=== PATIENT | female | born 1985 | race American Indian/Alaskan Native ===

== ENCOUNTER 2017-01-27 01:27 | Inpatient (IN) | payer MEDICAID, OTHER ==
[2017-01-27] MEDS ORDERED: Misoprostol 400 MCG (4 X 100 MCG TAB) RECTAL PRN (10:15)
[2017-01-27] MEDS ORDERED: Sodium Chloride 0.9% 10 ML Syringe FLUSH PRN ×2 (10:15→19:04)
[2017-01-27] MEDS ORDERED: Lactated Ringers 1,000 ML IV SCH (10:15)
[2017-01-27] MEDS ORDERED: Lactated Ringers 500 ML IV ONE (10:15)
[2017-01-27] MEDS ORDERED: Ondansetron 4 MG/2 ML SDV IV PRN (10:15)
[2017-01-27] MEDS ORDERED: Methylergonovine 0.2 MG/1 ML Amp IM PRN (10:15)
[2017-01-27] MEDS ORDERED: Lidocaine 1% 30 ML SDV INJECT PRN (10:15)
[2017-01-27] MEDS ORDERED: Acetaminophen 325 MG Tab PO PRN (10:15)
[2017-01-27] MEDS ORDERED: Carboprost Tromethamine 250 MCG/1 ML Amp IM PRN (10:15)
[2017-01-27] MEDS ORDERED: Oxytocin/Normal Saline 30 UNIT/500 ML BAG IV SCH (12:00)
[2017-01-27] MEDS ORDERED: Simethicone 80 MG Tab.Chew PO PRN (19:04)
[2017-01-27] MEDS ORDERED: Benzocaine/Menthol 20%-0.5% Spray 56 GM Canister TOP PRN (19:04)
[2017-01-27] MEDS ORDERED: Oxytocin 10 Units/1 ML SDV IM PRN (19:04)
[2017-01-27] MEDS ORDERED: Measles, Mumps & Rubella Vaccine 0.5 ML SDV SUBCUT ONE (19:04)
[2017-01-27] MEDS ORDERED: Zolpidem 5 MG Tab PO PRN (19:04)
[2017-01-27] MEDS: Ibuprofen 800 MG Tab PO PRN (19:56)
[2017-01-27] MEDS: Acetaminophen/HYDROcodone 325-10 MG Tab PO PRN (20:34)
[2017-01-28] MEDS: Acetaminophen/HYDROcodone 325-10 MG Tab PO PRN ×3 (01:17→22:37)
[2017-01-28] MEDS: Ibuprofen 800 MG Tab PO PRN ×2 (04:28→19:32)
--- NOTE | 2017-01-28 08:44 | HP ---
PATIENT IDENTIFICATION: Jenny Wiley is 31-year-old, -0-1-4, intrauterine , 39 weeks, confirmed with 24 and 7th week ultrasound, who presents with contractions. HISTORY OF PRESENT ILLNESS: The patient states contractions started the night prior to admission. She presented to the hospital around 2 a.m., had contractions every 6-9 minutes, felt in the lower abdomen, radiating to the back and describes some pubic bone pain associated with this as well. She was subsequently evaluated and followed closely. She states her contractions are worse when she walks, better when she lies down. She was initially noted to be 3 cm and then changed to 4 cm after serial examinations. She has a history of fast labors and deliveries, usually within 2 hours of artificial rupture of membranes, and lives far from the hospital. She is GBS negative to put in context. Records were called for, reviewed as below, and supplemented by the patient's history. ALLERGIES: Erythromycin. MEDICATIONS: vitamins. PAST MEDICAL/PAST SURGICAL HISTORY: Remarkable for chronic bronchitis and mood disorder requiring Zoloft and Lexapro in the past. FAMILY HISTORY: Maternal grandfather with stomach cancer. Seizures in maternal grandfather as well. Negative family history of defects, anesthesia problems, bleeding problems, or clotting disorders. SOCIAL HISTORY: Jenny lives in [place] with her 2 daughters. No pets in the home. She does smoke. No alcohol or drug use. OBSTETRICAL HISTORY: 1. On 02/21/2015, Chava Wiley born via spontaneous vaginal delivery at 39 and 2/7th weeks, weighing 3480 g, within 2 hours of artificial rupture of membranes. 2. On 01/25/2011, 39 week female delivered via spontaneous vaginal delivery weighing 2948 g. 3. 07/11/2007, female delivered via spontaneous vaginal delivery weighing 2892g. 4. 05/2006 spontaneous AB. 5. 06/02/2005 spontaneous vaginal delivery of a female weighing 2892 g. ANTEPARTUM LABS: ABO blood type O positive, negative antibody. Rubella equivocal. RPR nonreactive. Negative hepatitis B surface antigen. Negative hep C, HIV, GC, and Chlamydia. Wet prep within normal limits. One-hour GTT was 126. Last hemoglobin was 12.6 on 11/25/2016, with platelets being 258,000 in the clinic. GBS was negative on 01/13/2017. REVIEW OF SYSTEMS: Otherwise reviewed and felt to be noncontributory. OBJECTIVE: Vital Signs: Upon initial evaluation, blood pressure 117/71, heart rate 81, temperature 97.8, respiratory rate between 12 and 16. Appearance: Female, appears her stated age, acting appropriate for age, nontoxic appearance. HEENT: Head atraumatic. EOMs intact. PERRLA. No scleral icterus. No obvious otorhinorrhea. Mucous membranes moist. Neck: No obvious tenderness. Lungs: Clear auscultation bilaterally. No increased work of breathing. Heart: S1 and S2. Regular rate and rhythm. Abdomen: Gravid. Samuel's intermediate. Nontender and nondistended. Bowel sounds positive. No other organomegaly, pulsatile masses, or obvious hernias. No rebound, rigidity or guarding. : Normal external female genitalia. Normal position and presentation of urethra. Vaginal exam reveals her to be 4 cm, 60 to 75% effaced, -1 station, vertex suspected. Artificial rupture of membranes done after discussion with patient yielding copious amounts of clear fluid. Extremities: Trace pedal edema. No calf pain. Deep tendon reflexes 1-2/4 bilaterally and symmetric in lower extremities. Psych: Mood and affect are congruent. Judgment and insight are intact. Skin: No cyanosis, clubbing, or jaundice. LABORATORY DATA: Reveal white cell count 13.5, hemoglobin 11.9, and platelets 213,000. heart tones in the 135 range, felt to be reassuring. Tocometer reveals occasional contraction currently. ASSESSMENT: 1. Intrauterine at 39 weeks confirmed with 24-and /7th week ultrasound. 2. Contractions with cervical change. 3. History of fast labors and deliveries. 4. Living far from the hospital in the past. 5. Rubella equivocal. 6. Group B Streptococcus negative. 7. 6, para 4-0-1-4. PLAN: Patient will be admitted. Artificial rupture of membranes done as above. We will continue to follow clinically and closely. I did discuss potential for using Pitocin augmentation as well. The patient understands and agrees with the above treatment plan. [facility] /[id number]
[2017-01-28] MEDS: Docusate Sodium 100 MG Cap PO PRN ×2 (08:57→22:38)
[2017-01-28] MEDS: Prenatal Multivitamin with Calcium/Folic Acid/Iron Tab PO SCH (08:57)
--- NOTE | 2017-01-28 09:25 | PN ---
DATE: 01/27/2017 SUBJECTIVE: The patient's feeling contractions getting stronger. OBJECTIVE: heart tones in the 120s to 130s range, felt to be reassuring and reactive. Tocometer reveals contractions every 2 to 3 minutes. Pitocin is currently at 10 milliunits per minute. Vaginal exam reveals to be 6-7 cm, 80% effaced, 0 station, vertex suspected. ASSESSMENT AND PLAN: Intrauterine at 39 weeks with active labor upon admission, history of fast labors and deliveries, with history of living far from the hospital. Rubella equivocal. Group B Streptococcus negative. 6, para 4-0-1-4. PLAN: We will continue with Pitocin augmentation. Follow clinically and closely. Consider positional changes as well. Plans were discussed with the patient. She understands and agrees. [facility] /[id number]
--- NOTE | 2017-01-28 09:31 | PN ---
DATE: 01/28/2017 day #1. SUBJECTIVE: The patient is tolerating POs, ambulating, urinating, passing flatus. OBJECTIVE: Vital Signs: Last set of vitals updated and listed in the chart. Temperature 98.6, heart rate 82, blood pressure 137/76, respiratory rate 16. Lungs: Clear to auscultation bilaterally. Heart: S1 and S2. Regular rate and rhythm. Abdomen: Firm uterus -1 below umbilicus. Trace peripheral edema. No calf pain. LABORATORY DATA: White cell count 14.3, hemoglobin 11.4, and platelets 200,000 today. ASSESSMENT: 1. day #1, status post spontaneous vaginal delivery. 2. hypertension-resolving. PLAN: We will continue to follow clinically and closely. Possible discharge tomorrow. Did discuss with Dr. Brittany guzmán in my absence over the weekend and followup appointments for baby to be made on 01/31/2017. The patient understands and agrees with the above treatment plan. [facility] /[id number]
--- NOTE | 2017-01-28 09:39 | DEL ---
DATE: 01/27/2017 PREOPERATIVE DIAGNOSES: 1. Intrauterine at 39 weeks, confirmed with 24-1/7th-week ultrasound. 2. Contractions with cervical change-labor upon admission. 3. History of fast labors and deliveries. 4. History of living far from the hospital. 5. Rubella equivocal. 6. Group B Streptococcus negative. 7. 6, para 4-0-1-4. POSTOPERATIVE DIAGNOSES: 1. Intrauterine at 39 weeks, confirmed with 24-1/7th-week ultrasound- delivered. 2. Contractions with cervical change-labor upon admission. 3. History of fast labors and deliveries. 4. History of living far from the hospital. 5. Rubella equivocal. 6. Group B Streptococcus negative. 7. 6, para 4-0-1-4. 8. Nuchal cord x1, reduced bluntly with delivery. 9. SABINE presentation with right hand by left cheek. PROCEDURES PERFORMED: Artificial rupture of membranes, Pitocin, and then subsequent spontaneous vaginal delivery. HANDMADE TILE ARTIST: None. ANESTHESIA/ANALGESIA: None. ESTIMATED BLOOD LOSS: 300 mL. FINDINGS: Male, scores and weight pending. SUMMARY OF EVENTS: The patient is a 31-year-old, G6, P4-0-1-4, intrauterine at 39 weeks confirmed with 24-1/7th-week ultrasound, who was admitted with contractions with cervical change-labor with history of fast labors and deliveries. She underwent the above procedures, then went on to be found near the second stage of labor. Serial evaluations were done. She had the urge to push and was found to be in the 2nd stage of labor. I donned sterile gown and gloves and with the patient pushing, vertex was delivered in an SABINE presentation, followed by rest of the , with nuchal cord x1 reduced bluntly with delivery. Mouth and nares were suctioned. was resuscitated on mother's abdomen. Cord was doubly clamped and cut. Then, approximately 10 mL of cord blood was obtained for labs. Placenta was then delivered with gentle cord traction and fundal massage within 5 to 10 minutes. Perineum, vagina, and perirectal areas were then examined without any tears or lacerations. Mother and infant are currently stable at the time of dictation. [facility] /[id number]
[2017-01-29] MEDS: Acetaminophen/HYDROcodone 325-10 MG Tab PO PRN ×2 (02:16→06:38)
[2017-01-29] MEDS: Ibuprofen 800 MG Tab PO PRN ×2 (06:40→15:07)
[2017-01-29] MEDS: Docusate Sodium 100 MG Cap PO PRN (10:28)
[2017-01-29] MEDS: Prenatal Multivitamin with Calcium/Folic Acid/Iron Tab PO SCH (10:28)
[2017-01-29 14:32] VITALS: BP 104/69
--- NOTE | 2017-01-29 21:35 | DISCH ---
HISTORY: This patient was rounded on by myself today while Dr. Mendoza is off duty. Dr. Mendoza has conveyed and relayed the information to me about her hospital course. She did have a spontaneous vaginal delivery on 01/27/2017 with no complications. She is a 6, para 5, AB1 patient. She and her baby continued to do well. She is scheduled for discharge today. She does have the normal return of bowel and bladder function and is tolerating diet well. She has no complaints whatsoever. Please see the electronic health record as it pertains to Dr. Mendoza's dictated delivery note and her admission history and physical. At the present time, her examination is normal, revealing negative extremity exam and negative Homans sign bilaterally. Abdomen is soft, and nontender. The fundus is firm. There was negative CVA tenderness. Her vital signs continued to remain stable. Her discharge hemoglobin is 11.4. The patient will utilize regular diet at home. Her condition on discharge is good. As far as her followup appointment she will see Dr. Mendoza in the clinic on Tuesday. The patient states that she still thinks she would like to breast-feed, but that has not been well established yet. Other instructions that I have given her today is to please call us at once if any fever, excess pain, excess bleeding, or any unusual pain in her extremities, lungs, chest, or breast, or pelvic or vaginal area etc. She assures me that she will keep in close contact with us. I did explain to her the importance of gradual increased ambulation everyday. She will avoid intercourse for approximately 6 weeks. She will avoid heavy lifting or strenuous physical activity. Showering and bathing in a bathtub is permitted FINAL DIAGNOSIS: Term , delivered by Dr. Mendoza on 01/27/2017. DISCHARGE MEDICATIONS: Consist of; 1. [id number] use of ibuprofen or Tylenol. 2. She also will use Colace. 3. She will continue to take her vitamin with iron. Importance of healthy well-balanced nutritional measures and adequate hydration was also emphasized and discussed with her. [facility] /[id number]
== END 2017-01-29 15:30 | disposition home or self-care (01) | DRG 774 ==
LOC: DL.OBCHECK 01:27 → DL.OB 02:43 → OBSVTOIN 18:52 → DL.MS 01-29 05:56 → DL.OB 01-29 06:00
PROVIDERS: ADMIT Family Medicine; ATTEND Family Medicine
PROC: 10E0XZZ Delivery of Products of Conception, External Approach (ICD-10-PCS; principal; 2017-01-27)
PROC: 10907ZC Drainage of Amniotic Fluid, Therapeutic from Products of Conception, Via Natural or Artificial Opening (ICD-10-PCS; 2017-01-27)
DX: O69.81X0 Labor and delivery complicated by cord around neck, without compression, not applicable or unspecified (principal); O16.5 Unspecified maternal hypertension, complicating the puerperium; Z37.0 Single live birth; Z3A.39 39 weeks gestation of pregnancy; Z75.3 Unavailability and inaccessibility of health-care facilities
CPT/HCPCS: 36415; 85027; 90707; A9270-GY; J2590; J7120

== ENCOUNTER 2020-12-29 02:25 | Inpatient (IN) | payer MEDICAID, OTHER ==
[2020-12-29] MEDS ORDERED: Tranexamic Acid 1,000 MG in Sodium Chloride 0.9% 100 ML IV PRN ×2 (03:24→07:37)
[2020-12-29] MEDS ORDERED: Lactated Ringers 1,000 ML IV ONE ×2 (03:24→07:00)
[2020-12-29] MEDS ORDERED: Misoprostol 400 MCG (4 X 100 MCG TAB) RECTAL PRN ×2 (03:24→07:37)
[2020-12-29] MEDS ORDERED: Methylergonovine 0.2 MG/1 ML Amp IM PRN ×2 (03:24→07:37)
[2020-12-29] MEDS ORDERED: Carboprost Tromethamine 250 MCG/1 ML Amp IM PRN ×2 (03:24→07:37)
[2020-12-29] MEDS ORDERED: Lidocaine 1% 30 ML SDV INJECT PRN (03:24)
[2020-12-29] MEDS ORDERED: Acetaminophen 325 MG Tab PO PRN ×2 (03:24→07:37)
[2020-12-29] MEDS ORDERED: Ondansetron 4 MG/2 ML SDV IVPUSH PRN ×3 (03:24→07:40)
[2020-12-29] MEDS ORDERED: Sodium Chloride 0.9% 10 ML Syringe FLUSH PRN (03:24)
[2020-12-29] MEDS ORDERED: Oxytocin/Normal Saline 30 UNIT/500 ML BAG IV SCH (03:30)
--- NOTE | 2020-12-29 03:30 | PCM.LDHP ---
<LoweryLonniemaddie - Last Filed: 12/29/20 03:36> L&D History of Present Illness - General Date of Service: 12/29/20 Admit Problem/Dx: Labor 12/29/20 03:27 Patient Status [ADT] Routine Admission Diagnosis/Problem Admission Diagnosis/Problem Normal labor 12/29/20 03:30 Source of Information: Patient - History of Present Illness Introduction:: Jenny Wiley is a 35 year old female at 39w6d gestation who presents today with painful regular contractions. She states they have been sporadic over the last couple of days but have become more painful and closer together since approximately 1am. She states the contractions are occurring around every 5 minutes. She rates the pain 7/10. She has been feeling adequate movement. She denies any bleeding or leakage of fluid. care is limited. She was seen for a 29 week visit and found to have Trichomoniasis which was treated. Location, : Reports: Lower back Quality: Reports: Ache Severity: Moderate Improves with: Reports: None Worsens with: Reports: None Associated Symptoms: Denies: vaginal bleeding, vaginal fluid - Related Data Allergies/Adverse Reactions: Allergies Allergy/AdvReac Type Severity Reaction Status Date / Time erythromycin base Allergy Unknown Rash Verified 12/29/20 02:58 [Erythromycin Base] Home Medications: Home Meds Pnv No.95/Ferrous Fum/Folic AC [ Caplet] 1 tab PO DAILY 12/29/20 [History] Acetaminophen [Tylenol] 650 mg PO Q6H PRN tablet 01/01/21 [Rx] Acetaminophen/oxyCODONE [Percocet 325-5 MG] 1 - 2 tab PO Q6HR PRN #15 tablet 01/01/21 [Rx] Docusate Sodium [Colace] 100 mg PO Q12H PRN 60 Days cap 01/01/21 [Rx] Ferrous Sulfate 325 mg PO BID #84 tablet 01/01/21 [Rx] Ibuprofen [Motrin] 800 mg PO Q8H PRN tablet 01/01/21 [Rx] Vit with Ca/FA/Iron [ Plus Iron] 1 each PO DAILY tablet 01/01/21 [Rx] Past Medical History - Past Health History Medical/Surgical History: Denies Medical/Surgical History HEENT History: Reports: None Cardiovascular History: Reports: None Respiratory History: Reports: None Gastrointestinal History: Reports: None Genitourinary History: Reports: None CMS EXPERT History: Reports: , Spontaneous Other OB/BYN History: had a vaginal delivery 3 months ago Musculoskeletal History: Reports: None Neurological History: Reports: None Psychiatric History: Reports: None Endocrine/Metabolic History: Reports: None Hematologic History: Reports: None Immunologic History: Reports: None Oncologic (Cancer) History: Reports: None Dermatologic History: Reports: None - Infectious Disease History Infectious Disease History: Reports: Chicken Pox - Past Surgical History Head Surgeries/Procedures: Reports: None Social & Family History - Family History Family Medical History: No Pertinent Family History - Caffeine Use Caffeine Use: Reports: None Other Caffeine Use: States drinks 1 pot of coffee a day. And occasional soft drinks H&P Review of Systems - Review of Systems: Review Of Systems: See Below General: Denies: Fever, Chills, Malaise HEENT: Reports: Headaches. Denies: Sinus Congestion, Sore Throat, Visual Changes Pulmonary: Denies: Shortness of Breath, Wheezing, Cough Cardiovascular: Denies: Chest Pain, Palpitations, Edema Gastrointestinal: Denies: Nausea, Vomiting Genitourinary: Denies: Dysuria, Urgency Skin: Denies: Bruising, Rash Psychiatric: Denies: Confusion, Depression L&D Exam - Exam Exam: See Below - Vital Signs Weight: 95.254 kg - OB Specific Contraction Intensity: Moderate Movement: Active Heart Tones: Present Heart Tones per Min: 120 Heart Rate (FHR) Variability: Moderate (6-25 bmp) Presentation: Vertex - Louis Score Louis Score Cervix Position: Midposition Louis Score Consistency: Soft Louis Score Effacement: 51-70% Louis Score Dilation: > 5 cm Louis Score Infant's Station: -1 ,0 Louis Score Total: 10 - Exam General: Alert, Oriented HEENT: Conjunctiva Clear, Mucosa Moist & [place] Neck: Supple, Trachea Midline Lungs: Clear to Auscultation, Normal Respiratory Effort Cardiovascular: Regular Rate, Regular Rhythm GI/Abdominal Exam: Normal Bowel Sounds, Soft Extremities: Normal Inspection, Pedal Edema (mild pedal edema) Skin: Warm, Dry Psychiatric: Alert, Normal Mood Problem List Initiated/Reviewed/Updated: Yes Orders Last 24hrs: Active Orders 24 hr Category Date Time Status Patient Status [ADT] Routine ADT 12/29/20 03:27 Ordered Communication Order [RC] ASDIRECTED Care 12/29/20 03:27 Ordered Heart Tones [RC] PER UNIT ROUTINE Care 12/29/20 03:27 Ordered Notify Provider Vital Signs OB [RC] ASDIRECTED Care 12/29/20 03:27 Ordered Notify Provider [RC] PRN Care 12/29/20 03:27 Ordered Pump Management, Intrathecal [RC] ASDIRECTED Care 12/29/20 03:24 Ordered Up ad Bella [RC] ASDIRECTED Care 12/29/20 03:27 Ordered Vital Signs [RC] PER UNIT ROUTINE Care 12/29/20 03:27 Ordered CBC W/O DIFF,HEMOGRAM [HEME] Routine Lab 12/29/20 03:10 Ordered CORONAVIRUS COVID-19 AUDI [MOLEC] Urgent Lab 12/29/20 03:10 Ordered DRUG SCREEN, URINE [URCHEM] Urgent Lab 12/29/20 03:22 Ordered Acetaminophen [TylenoL] Med 12/29/20 03:24 Ordered 650 mg PO Q4H PRN Carboprost Tromethamine [Hemabate DS] Med 12/29/20 03:24 Ordered 250 mcg IM ASDIRECTED PRN Lactated Ringers @ 125 MLS/HR(1000ml) Med 12/29/20 03:30 Ordered Lactated Ringers [Ringers, Lactated] 1,000 ml IV ASDIRECTED Lactated Ringers [Ringers, Lactated] 1,000 ml Med 12/29/20 03:24 Ordered IV BOLUS Lidocaine 1% [Xylocaine-MPF 1%] Med 12/29/20 03:24 Ordered 30 ml INJECT ASDIRECTED PRN Methylergonovine [Methergine] Med 12/29/20 03:24 Ordered 0.2 mg IM ASDIRECTED PRN Ondansetron [Zofran] Med 12/29/20 03:24 Ordered 4 mg IVPUSH Q4H PRN Oxytocin 30 Units in NS @ 2 MUNITS/MIN(500ml) Med 12/29/20 03:30 Ordered Oxytocin/Normal Saline [Pitocin in NS 30 UNIT/500 ML] 30 unit in 500 ml IV TITRATE Sodium Chloride 0.9% [Saline Flush] Med 12/29/20 03:24 Ordered 10 ml FLUSH ASDIRECTED PRN Tranexamic Acid [Cyklokapron] 1,000 mg Med 12/29/20 03:24 Ordered Sodium Chloride 0.9% [Normal Saline] 100 ml IV ONETIME miSOPROStoL [Cytotec] Med 12/29/20 03:24 Ordered 800 mcg RECTAL ASDIRECTED PRN Saline Lock Insert [OM.PC] Routine Oth 12/29/20 03:27 Ordered Resuscitation Status Routine Resus Stat 12/29/20 03:24 Ordered Assessment/Plan Comment:: Assessment: Jenny Wiley is a 35 year old female here in labor, with limited care. Category 1 tracing. Plan: 1.Admit patient to L&D for expectant management of active labor in term 2. Monitor with Malcom/EFM 3. Will obtain UDS as patient had one visit at 29 weeks. 4. Patient does not desire intrathecal. 5. Expect <Cass Ayers - Last Filed: 01/01/21 13:03> L&D History of Present Illness - General Admit Problem/Dx: Patient Status Order with Admit Dx/Problem 12/29/20 03:27 Patient Status [ADT] Routine 12/29/20 07:37 Patient Status [ADT] Routine Admission Diagnosis/Problem Admission Diagnosis/Problem delivery, delivered, current hospitalization L&D Exam - Vital Signs Vital Signs: Last Vital Signs Temp 37.6 C 01/01/21 08:00 Pulse 92 01/01/21 08:00 Resp 16 01/01/21 08:00 BP 128/71 01/01/21 08:00 Pulse Ox 97 01/01/21 08:00 - Patient Data Lab Results Last 24 hrs: Laboratory Results - last 24 hr 01/01/21 Range/Units 05:53 WBC 12.4 H (5.0-10.0) 10^3/uL RBC 3.31 L (4.2-5.4) 10^6/uL Hgb 9.9 L D (12.0-16.0) g/dL Hct 31.2 L (37.0-47.0) % MCV 94.3 (80-100) fL MCH 29.9 (27.0-34.0) pg MCHC 31.7 L (33.0-35.0) g/dL Plt Count 326 (150-450) 10^3/uL Result Diagrams: 01/01/21 05:53 Orders Last 24hrs: Active Orders 24 hr Category Date Time Status Ready for Discharge [RC] PER UNIT ROUTINE Care 01/01/21 07:49 Active Medication Orders Acetaminophen (Acetaminophen 325 Mg Tab) 650 mg PO Q6H PRN PRN Reason: Mild Pain (1-3) or Fever Carboprost Tromethamine (Carboprost Tromethamine 250 Mcg/1 Ml Amp) 250 mcg IM ONETIME PRN PRN Reason: Bleeding Diphenhydramine HCl (Diphenhydramine 50 Mg/Ml Sdv) 25 mg IVPUSH Q6H PRN PRN Reason: Itching Diphenhydramine HCl (Diphenhydramine 25 Mg Tab) 25 mg PO Q6H PRN PRN Reason: Itching Docusate Sodium (Docusate Sodium 100 Mg Cap) 100 mg PO Q12H PRN PRN Reason: Constipation Last Admin: 01/01/21 08:59 Dose: 100 mg Documented by: Admin: 12/31/20 22:48 Dose: 100 mg Documented by: Admin: 12/31/20 08:43 Dose: 100 mg Documented by: Admin: 12/30/20 21:24 Dose: 100 mg Documented by: Admin: 12/30/20 13:05 Dose: 100 mg Documented by: Admin: 12/29/20 19:48 Dose: 100 mg Documented by: THAIS Ephedrine Sulfate (Ephedrine 50 Mg/Ml Sdv) 5 mg IVPUSH SEECOMMENT PRN PRN Reason: Other Fentanyl Citrate (Fentanyl Citrate/Pf 1,500 Mcg/30 Ml Vegetable Loader Machine Operator Vial) 0 mcg IV ASDIRECTED SANDY; Protocol Last Admin: 12/29/20 07:50 Dose: 50 mcg Documented by: JOAQUIN Cosigned by: OVERTIM Lactated Ringer's (Ringers, Lactated) 1,000 mls @ 125 mls/hr IV ASDIRECTED SANDY Last Admin: 12/29/20 20:37 Dose: 125 mls/hr Documented by: Infusion: 12/29/20 12:24 Dose: 125 mls/hr Documented by: Admin: 12/29/20 04:24 Dose: 125 mls/hr Documented by: THAIS Oxytocin/Sodium Chloride (Pitocin In Ns 30 Unit/500 Ml) 30 unit in 500 mls @ 2 mls/hr IV TITRATE SANDY; Protocol Last Titration: 12/29/20 10:32 Dose: 0 munits/min, 0 mls/hr Documented by: Titration: 12/29/20 09:00 Dose: 50 munits/min, 50 mls/hr Documented by: Admin: 12/29/20 07:21 Dose: 125 munits/min, 125 mls/hr Documented by: JOAQUIN Lactated Ringer's (Ringers, Lactated) 1,000 mls @ 125 mls/hr IV ASDIRECTED SANDY Last Admin: 12/29/20 16:46 Dose: 125 mls/hr Documented by: Infusion: 12/29/20 16:33 Dose: 125 mls/hr Documented by: Admin: 12/29/20 08:33 Dose: 125 mls/hr Documented by: ALEX Tranexamic Acid 1,000 mg/ (Sodium Chloride) 110 mls @ 660 mls/hr IV ONETIME PRN PRN Reason: Bleeding Ibuprofen (Ibuprofen 800 Mg Tab) 800 mg PO Q8H PRN PRN Reason: Cramping Last Admin: 01/01/21 08:59 Dose: 800 mg Documented by: Admin: 12/31/20 22:48 Dose: 800 mg Documented by: Admin: 12/31/20 14:23 Dose: 800 mg Documented by: Admin: 12/31/20 06:30 Dose: 800 mg Documented by: Admin: 12/30/20 21:23 Dose: 800 mg Documented by: Admin: 12/30/20 13:05 Dose: 800 mg Documented by: USMAN Lidocaine HCl (Lidocaine 1% 30 Ml Sdv) 30 ml INJECT ASDIRECTED PRN PRN Reason: Perineal Repair Methylergonovine Maleate (Methylergonovine 0.2 Mg/1 Ml Amp) 0.2 mg IM ASDIRECTED PRN PRN Reason: Hemorrhage Methylergonovine Maleate (Methylergonovine 0.2 Mg/1 Ml Amp) 0.2 mg IM ONETIME PRN PRN Reason: Excessive Vaginal Bleeding Misoprostol (Misoprostol 400 Mcg (4 X 100 Mcg Tab)) 800 mcg RECTAL ASDIRECTED PRN PRN Reason: Excessive bleeding Naloxone HCl (Naloxone 2 Mg/2 Ml Syringe) 0.1 mg IVPUSH SEECOMMENT PRN PRN Reason: Respiratory Depression Naloxone HCl (Naloxone 2 Mg/2 Ml Syringe) 0.04 mg IVPUSH Q3M PRN PRN Reason: Respiratory Depression Ondansetron HCl (Ondansetron 4 Mg/2 Ml Sdv) 4 mg IVPUSH Q6H PRN PRN Reason: Nausea/Vomiting Oxycodone/Acetaminophen (Acetaminophen/Oxycodone 325-5 Mg Tab) 1 tab PO Q4H PRN PRN Reason: Pain (moderate 4-6) Oxycodone/Acetaminophen (Acetaminophen/Oxycodone 325-5 Mg Tab) 2 tab PO Q4H PRN PRN Reason: Pain (moderate 4-6) Last Admin: 01/01/21 08:59 Dose: 2 tab Documented by: Admin: 01/01/21 04:04 Dose: 2 tab Documented by: Admin: 12/31/20 22:48 Dose: 2 tab Documented by: Admin: 12/31/20 18:40 Dose: 2 tab Documented by: Admin: 12/31/20 14:24 Dose: 2 tab Documented by: Admin: 12/31/20 06:29 Dose: 2 tab Documented by: Admin: 12/31/20 02:37 Dose: 2 tab Documented by: Admin: 12/30/20 21:24 Dose: 2 tab Documented by: Admin: 12/30/20 17:17 Dose: 2 tab Documented by: Admin: 12/30/20 13:06 Dose: 2 tab Documented by: Admin: 12/30/20 08:51 Dose: 2 tab Documented by: USMAN Pastrana Multivit/Terrazzo Tile Maker/Iron/Folic Ac ( Multivitamin With Calcium/Folic Acid/Iron Tab) 1 each PO DAILY SANDY Last Admin: 01/01/21 08:59 Dose: 1 each Documented by: Admin: 12/31/20 08:43 Dose: 1 each Documented by: Admin: 12/30/20 08:51 Dose: 1 each Documented by: Admin: 12/29/20 09:13 Dose: Not Given Documented by: ELIANE Simethicone (Simethicone 80 Mg Tab.Chew) 160 mg PO QID SANDY Last Admin: 01/01/21 08:59 Dose: 160 mg Documented by: Admin: 12/31/20 22:47 Dose: 160 mg Documented by: Admin: 12/31/20 18:27 Dose: 160 mg Documented by: Admin: 12/31/20 14:25 Dose: 160 mg Documented by: Admin: 12/31/20 08:43 Dose: 160 mg Documented by: Admin: 12/30/20 21:23 Dose: 160 mg Documented by: Admin: 12/30/20 17:17 Dose: 160 mg Documented by: Admin: 12/30/20 13:00 Dose: 160 mg Documented by: Admin: 12/30/20 08:51 Dose: 160 mg Documented by: Admin: 12/29/20 20:36 Dose: 160 mg Documented by: Admin: 12/29/20 16:42 Dose: 160 mg Documented by: Admin: 12/29/20 13:39 Dose: 160 mg Documented by: Admin: 12/29/20 09:13 Dose: Not Given Documented by: ELIANE Sodium Chloride (Sodium Chloride 0.9% 10 Ml Syringe) 10 ml FLUSH ASDIRECTED PRN PRN Reason: Keep Vein Open Assessment/Plan Comment:: Agree with resident assessment and plan. Will plan to send umbilical cord for drug testing as well. Dr. Cass Ayers MD
[2020-12-29] MEDS: Lactated Ringers 1,000 ML IV SCH ×4 (04:24→20:37)
[2020-12-29] MEDS ORDERED: ceFAZolin 1 GM Vial IV ONE (06:16)
[2020-12-29] MEDS ORDERED: Citric Acid/Sodium Citrate Solution 30 ML Cup PO ONE (06:18)
[2020-12-29] MEDS ORDERED: Oxytocin/Normal Saline 60 UNIT/1,000 ML BAG ONE (06:20)
[2020-12-29] MEDS ORDERED: Citric Acid/Sodium Citrate Solution 30 ML Cup ONE (06:20)
[2020-12-29] MEDS ORDERED: Propofol 200 MG/20 ML SDV IV ONE (07:00)
[2020-12-29] MEDS ORDERED: Ondansetron 4 MG/2 ML SDV IV ONE (07:00)
[2020-12-29] MEDS ORDERED: Dexamethasone 4 MG/ML SDV IV ONE (07:00)
[2020-12-29] MEDS ORDERED: fentaNYL 250 MCG/5 ML SDV IV ONE (07:00)
[2020-12-29] MEDS ORDERED: Ketorolac 30 MG/ML SDV IVPUSH ONE (07:00)
[2020-12-29] MEDS ORDERED: Midazolam 1 MG/ML 2 ML SDV IV ONE (07:00)
[2020-12-29] MEDS ORDERED: fentaNYL Citrate/PF 1,500 MCG/30 ML PCA Vial ONE (07:36)
[2020-12-29] MEDS ORDERED: Acetaminophen/oxyCODONE 325-5 MG Tab PO PRN (07:37)
[2020-12-29] MEDS ORDERED: Naloxone 2 MG/2 ML Syringe IVPUSH PRN ×2 (07:37→07:40)
[2020-12-29] MEDS ORDERED: ePHEDrine 50 MG/ML SDV IVPUSH PRN (07:37)
[2020-12-29] MEDS ORDERED: diphenhydrAMINE 50 MG/ML SDV IVPUSH PRN ×2 (07:37→07:40)
[2020-12-29] MEDS ORDERED: diphenhydrAMINE 25 MG Tab PO PRN (07:40)
[2020-12-29] MEDS ORDERED: fentaNYL Citrate/PF 1,500 MCG/30 ML PCA Vial IV SCH (07:45)
[2020-12-29] MEDS: Simethicone 80 MG Tab.Chew PO SCH ×4 (09:13→20:36)
[2020-12-29] MEDS: Prenatal Multivitamin with Calcium/Folic Acid/Iron Tab PO SCH (09:13)
[2020-12-29] MEDS ORDERED: Oxytocin/Normal Saline 30 UNIT/500 ML BAG IV ONE (12:54)
[2020-12-29] MEDS: Ketorolac 30 MG/ML SDV IVPUSH SCH ×2 (13:39→19:47)
--- NOTE | 2020-12-29 15:53 | OR ---
DATE: 12/29/2020 PREOPERATIVE DIAGNOSES: 1. Intrauterine at 39 and 6/7 weeks by 30 and 1/7 weeks ultrasound. 2. Prolapsed cord with hand presentation noted approximately 35 minutes after rupture of membranes with vertex presentation noted prior to and with artificial rupture of membranes. 3. Active labor upon admission. 4. GBS unknown. 5. Urine drug screen - negative. 6. Limited care with 1 visit. 7. Trichomoniasis in - treated. 8. Thick meconium-stained fluid. 9. G8, P6-0-1-6. POSTOPERATIVE DIAGNOSES: 1. Intrauterine at 39 and 6/7 weeks by 30 and 1/7 weeks ultrasound, delivered. 2. Prolapsed cord with hand presentation noted approximately 35 minutes after rupture of membranes with vertex presentation noted prior to and with artificial rupture of membranes. 3. Active labor upon admission. 4. GBS unknown. 5. Urine drug screen - negative. 6. Limited care with 1 visit. 7. Trichomoniasis in - treated. 8. Thick meconium-stained fluid. 9. G8, P6-0-1-6. 10.Nuchal cord x2, reduced bluntly with delivery - loose. prolapsed cord noted with delivery. PROCEDURE PERFORMED: Primary low transverse with 2-layer uterine closure. FIRST ASSISTANTS: 1. Cass Ayers MD. 2. Carisa Ortega, PGY3. 3. Colette Da Silva, Medical Student 3. ANESTHESIA: General. ESTIMATED BLOOD LOSS: 400 mL. IV FLUIDS: 200 mL of Pitocin, 600 mL of lactated Ringer's. URINE OUTPUT: 100 mL cloudy and yellow. START: 6:48. UTERINE INCISION: 6:49. DELIVERY: 6:49. STOP: 7:07. FINDINGS: Male, score and weight pending. SUMMARY OF EVENTS: The patient is a 35-year-old, G8, P6-0-1-6, intrauterine at 39 and 6/7 weeks by 30 and 1/7 weeks ultrasound who was admitted in active labor. She was admitted by Dr. Ayers and Kira Lowery, the resident. She was found to be vertex presentation with active labor and the above diagnoses. She underwent artificial rupture of membranes yielding meconium- stained fluid with vertex presentation noted. Subsequently, I assumed care of this patient at approximately 6:02 a.m. after OB nurse called and I asked the patient to be subsequently evaluated to see how far she was progressing. I received a call around 6:09 and was notified of hand presentation with cord prolapse. Stat was called for. I arrived to the hospital as fast as possible, evaluated the patient quickly, Sapna Whitley, the nurse kept her hand vaginally after noted cord prolapse to keep pressure from the cord. There were noted to be some decelerations into the 90s by my eyes with some recovery into the 140s, in fact it was 140 prior to leaving to the OR. She was wheeled to the OR and stat was done as below. DESCRIPTION OF PROCEDURE IN DETAIL: After proper consent was obtained, the patient was brought to the operating room in a stat fashion. Abdomen was prepped and draped in a normal sterile fashion with the patient placed in supine position in a left lateral tilt using Betadine for timeliness. General anesthesia was induced. After SATELLITE DISH INSTALLER gave the okay, skin incision was made as below and case was started. Skin incision was made on the lower abdomen in a transverse Pfannenstiel-type fashion. This was carried down the fascia and scored in the midline. Subcutaneous tissue was raked laterally and bluntly, and fascial incision was extended transversely, bluntly, as well as superiorly, inferiorly, bluntly with dissecting the rectus and pyramidalis muscles from the fascia using blunt technique. Rectus muscles were in midline using blunt technique. Abdominal cavity was then entered with blunt technique. Incision was extended superiorly and inferiorly with blunt technique. Marlo O retractor was then introduced and used. Vesicouterine peritoneum was identified, incised in a transverse fashion with Metzenbaum scissors and bladder flap was made digitally. A curvilinear incision was then made on lower uterine segment at 0649 hours. Meconium-stained fluid returned. After uterus was entered sharply, uterine incision was then extended in a transverse fashion using blunt technique. There was noted to be a cord draped over the head and in prolapsed cord presentation. Subsequently, this was reduced. vertex was delivered. Nuchal cord x2 that was loose was noted and reduced bluntly at delivery and rest of the infant delivered without difficulty. Mouth and nares were suctioned. Cord was doubly clamped and cut. was brought over to team. Then, approximately 10 mL of cord blood was obtained for labs. Placenta was then delivered with gentle cord traction and fundal massage. Uterine cavity was then cleared of all blood clots and debris with lap sponge. Luke clamps were used to grasp the uterine incision. This was closed in a running locked fashion and tied at lateral margins with 1-0 Vicryl. Second imbricating layer was then applied with 1-0 Vicryl and tied at lateral margins. First inspection of the uterine incision revealed hemostasis. Marlo O retractor was then removed and paracolic gutters were then cleared of all blood clots and debris with lap sponge. Anterior cul-de-sac was irrigated copiously, all blood clots were removed. Second and final inspection of uterine incision and anterior cul-de-sac revealed hemostasis. Rectus muscles were then reapproximated in midline with [id number] stitch using 1-0 Vicryl. Subfascial tissues were found to be hemostatic. Fascia was closed in a running fashion and tied at lateral margins with 0 looped PDS. Subcutaneous tissue irrigated copiously and hemostasis reassured. Skin was reapproximated with medium tavo. Sterile Aquacel dressing was applied. Uterine fundus was firm and massaged at the conclusion of the case, -1 below umbilicus. No immediate complications were noted. Sponge, lap and needle counts were correct. The patient received 2 g of Ancef preoperatively, Pitocin per protocol, and received Toradol at the conclusion of the case for pain control. Mother and are currently stable at the time of dictation. [facility] /[id number] KESHIA
[2020-12-29] MEDS: Docusate Sodium 100 MG Cap PO PRN (19:48)
[2020-12-30] MEDS: Ketorolac 30 MG/ML SDV IVPUSH SCH (01:51)
[2020-12-30] MEDS: Simethicone 80 MG Tab.Chew PO SCH ×4 (08:51→21:23)
[2020-12-30] MEDS: Acetaminophen/oxyCODONE 325-5 MG Tab PO PRN ×4 (08:51→21:24)
[2020-12-30] MEDS: Prenatal Multivitamin with Calcium/Folic Acid/Iron Tab PO SCH (08:51)
--- NOTE | 2020-12-30 09:44 | PCM.PNPP ---
<Kira Lowery - Last Filed: 12/30/20 09:57> - General Info Date of Service: 12/30/20 Admission Dx/Problem (Free Text): Labor, now s/p section secondary to cord prolapse with hand presentation after rupture of membranes with vertex position Subjective Update: Jenny Wiley is a 35 year old female G8 now P7 at 39w6d gestation who is POD#1 s/p primary low transverse section. Her HEADLINE WRITER was discontinued. Her pain has been adequately controlled with oral pain medications. She has not yet been out of bed. Her lochia has been minimal. She is bottle feeding. She has been tolerating oral intake well. She complains of some generalized swelling. O therwise, she has no other concerns. Functional Status: Reports: Pain Controlled - Review of Systems General: Denies: Fever, Weakness, Chills HEENT: Denies: Headaches, Visual Changes Pulmonary: Denies: Shortness of Breath, Cough Cardiovascular: Reports: Edema. Denies: Chest Pain Gastrointestinal: Denies: Abdominal Pain, Constipation, Diarrhea, Nausea, Vomiting Genitourinary: Denies: Dysuria, Frequency, Burning, Urgency Skin: Denies: Cyanosis, Rash Neurological: Denies: Headache - General Info Date of Service: 12/30/20 - Patient Data Vital Signs - Most Recent: Last Vital Signs Temp 97.9 F 12/30/20 08:00 Pulse 92 12/30/20 08:00 Resp 18 12/30/20 08:00 BP 117/61 12/30/20 08:00 Pulse Ox 99 12/30/20 08:00 Weight - Most Recent: 95.254 kg I&O - Last 24 Hours: Intake & Output 12/29/20 12/30/20 12/30/20 22:59 06:59 14:59 Intake Total 1650 1000 Output Total 40 410 Balance 125@ 590 @ Med Orders - Current: Current Medications Acetaminophen (Acetaminophen 325 Mg Tab) 650 mg PO Q6H PRN PRN Reason: Mild Pain (1-3) or Fever Carboprost Tromethamine (Carboprost Tromethamine 250 Mcg/1 Ml Amp) 250 mcg IM ONETIME PRN PRN Reason: Bleeding Diphenhydramine HCl (Diphenhydramine 50 Mg/Ml Sdv) 25 mg IVPUSH Q6H PRN PRN Reason: Itching Diphenhydramine HCl (Diphenhydramine 25 Mg Tab) 25 mg PO Q6H PRN PRN Reason: Itching Docusate Sodium (Docusate Sodium 100 Mg Cap) 100 mg PO Q12H PRN PRN Reason: Constipation Last Admin: 12/29/20 19:48 Dose: 100 mg Documented by: Ephedrine Sulfate (Ephedrine 50 Mg/Ml Sdv) 5 mg IVPUSH SEECOMMENT PRN PRN Reason: Other Fentanyl Citrate (Fentanyl Citrate/Pf 1,500 Mcg/30 Ml Statistics Manager Vial) 0 mcg IV ASDIRECTED [facility]; Protocol Last Admin: 12/29/20 07:50 Dose: 50 mcg Documented by: Lactated Ringer's (Ringers, Lactated) 1,000 mls @ 125 mls/hr IV ASDIRECTED [facility] Last Admin: 12/29/20 20:37 Dose: 125 mls/hr Documented by: Oxytocin/Sodium Chloride (Pitocin In Ns 30 Unit/500 Ml) 30 unit in 500 mls @ 2 mls/hr IV TITRATE [facility]; Protocol Last Titration: 12/29/20 10:32 Dose: 0 munits/min, 0 mls/hr Documented by: Lactated Ringer's (Ringers, Lactated) 1,000 mls @ 125 mls/hr IV ASDIRECTED [facility] Last Admin: 12/29/20 16:46 Dose: 125 mls/hr Documented by: Tranexamic Acid 1,000 mg/ (Sodium Chloride) 110 mls @ 660 mls/hr IV ONETIME PRN PRN Reason: Bleeding Ibuprofen (Ibuprofen 800 Mg Tab) 800 mg PO Q8H PRN PRN Reason: Cramping Lidocaine HCl (Lidocaine 1% 30 Ml Sdv) 30 ml INJECT ASDIRECTED PRN PRN Reason: Perineal Repair Methylergonovine Maleate (Methylergonovine 0.2 Mg/1 Ml Amp) 0.2 mg IM ASDIRECTED PRN PRN Reason: Hemorrhage Methylergonovine Maleate (Methylergonovine 0.2 Mg/1 Ml Amp) 0.2 mg IM ONETIME PRN PRN Reason: Excessive Vaginal Bleeding Misoprostol (Misoprostol 400 Mcg (4 X 100 Mcg Tab)) 800 mcg RECTAL ASDIRECTED PRN PRN Reason: Excessive bleeding Naloxone HCl (Naloxone 2 Mg/2 Ml Syringe) 0.1 mg IVPUSH SEECOMMENT PRN PRN Reason: Respiratory Depression Naloxone HCl (Naloxone 2 Mg/2 Ml Syringe) 0.04 mg IVPUSH Q3M PRN PRN Reason: Respiratory Depression Ondansetron HCl (Ondansetron 4 Mg/2 Ml Sdv) 4 mg IVPUSH Q6H PRN PRN Reason: Nausea/Vomiting Oxycodone/Acetaminophen (Acetaminophen/Oxycodone 325-5 Mg Tab) 1 tab PO Q4H PRN PRN Reason: Pain (moderate 4-6) Oxycodone/Acetaminophen (Acetaminophen/Oxycodone 325-5 Mg Tab) 2 tab PO Q4H PRN PRN Reason: Pain (moderate 4-6) Last Admin: 12/30/20 08:51 Dose: 2 tab Documented by: Prenat Multivit/[place]/Iron/Folic Ac ( Multivitamin With Calcium/Folic Acid/Iron Tab) 1 each PO DAILY [facility] Last Admin: 12/30/20 08:51 Dose: 1 each Documented by: Simethicone (Simethicone 80 Mg Tab.Chew) 160 mg PO QID [facility] Last Admin: 12/30/20 08:51 Dose: 160 mg Documented by: Sodium Chloride (Sodium Chloride 0.9% 10 Ml Syringe) 10 ml FLUSH ASDIRECTED PRN PRN Reason: Keep Vein Open Discontinued Medications Acetaminophen (Acetaminophen 325 Mg Tab) 650 mg PO Q4H PRN PRN Reason: Pain (Mild 1-3) and fever Last Admin: 12/29/20 04:23 Dose: 650 mg Documented by: Carboprost Tromethamine (Carboprost Tromethamine 250 Mcg/1 Ml Amp) 250 mcg IM ASDIRECTED PRN PRN Reason: HEMORRHAGE Citric Acid/Sodium Citrate (Citric Acid/Sodium Citrate Solution 30 Ml Cup) 30 ml PO ONETIME ONE Stop: 12/29/20 06:19 Last Admin: 12/29/20 06:30 Dose: 30 ml Documented by: Citric Acid/Sodium Citrate (Citric Acid/Sodium Citrate Solution 30 Ml Cup) Confirm Administered Dose 30 ml .ROUTE .STK-MED ONE Stop: 12/29/20 06:21 Last Admin: 12/29/20 07:34 Dose: Not Given Documented by: Diphenhydramine HCl (Diphenhydramine 50 Mg/Ml Sdv) 25 mg IVPUSH Q6H PRN PRN Reason: Itching or Nausea Fentanyl Citrate (Fentanyl Citrate/Pf 1,500 Mcg/30 Ml Statistics Manager Vial) Confirm Administered Dose 1,500 mcg .ROUTE .STK-MED ONE Stop: 12/29/20 07:37 Lactated Ringer's (Ringers, Lactated) 1,000 mls @ 100 mls/hr IV BOLUS ONE Stop: 12/29/20 13:23 Last Admin: 12/29/20 07:54 Dose: Not Given Documented by: Tranexamic Acid 1,000 mg/ (Sodium Chloride) 110 mls @ 660 mls/hr IV ONETIME PRN PRN Reason: Bleeding Cefazolin Sodium/Dextrose (Ancef 2 Gm/50 Ml) Confirm Administered Dose 50 mls @ as directed .ROUTE .STK-MED ONE Stop: 12/29/20 06:21 Last Admin: 12/29/20 07:34 Dose: Not Given Documented by: Cefazolin Sodium/Dextrose (Ancef 2 Gm/50 Ml) Confirm Administered Dose 50 mls @ as directed .ROUTE .STK-MED ONE Stop: 12/29/20 06:21 Oxytocin/Sodium Chloride (Pitocin In Ns 30 Unit/500 Ml) Confirm Administered Dose 60 unit in 1,000 mls @ as directed .ROUTE .STK-MED ONE Stop: 12/29/20 06:21 Cefazolin Sodium/Dextrose (Ancef 2 Gm/50 Ml) 50 mls @ 100 mls/hr IV ONETIME ONE Stop: 12/29/20 07:14 Last Admin: 12/29/20 06:30 Dose: 100 mls/hr Documented by: Oxytocin/Sodium Chloride (Pitocin In Ns 30 Unit/500 Ml) 30 unit in 500 mls @ as directed IV .STK-MED ONE Stop: 12/29/20 12:55 Ketorolac Tromethamine (Ketorolac 30 Mg/Ml Sdv) 15 mg IVPUSH Q6H SANDY Stop: 12/30/20 02:01 Last Admin: 12/30/20 01:51 Dose: 15 mg Documented by: Ondansetron HCl (Ondansetron 4 Mg/2 Ml Sdv) 4 mg IVPUSH Q4H PRN PRN Reason: Nausea/Vomiting - Interaction Support Person: Friend - Recovery Exam Fundal Tone: Firm Fundal Level: 1 Fingerbreadths Below Umbilicus Fundal Placement: Midline Lochia Amount: Scant Lochia Color: Rubra/Red Perineum Description: Intact, Minimal Bruising/Swelling Bladder Status: Indwelling Catheter in Place Urinary Elimination: Indwelling Catheter - Exam General: Alert, Oriented HEENT: Pupils Equal, Pupils Reactive Lungs: Clear to Auscultation, Normal Respiratory Effort Cardiovascular: Regular Rate, Regular Rhythm Extremities: Non-Tender, No Pedal Edema Skin: Warm, Dry Wound/Incisions: Dressing Dry and Intact Neurological: No New Focal Deficit Psy/Mental Status: Alert, Normal Mood - Problem List Review Problem List Initiated/Reviewed/Updated: Yes - My Orders Last 24 Hours: My Active Orders 12/29/20 09:00 Vit with Ca/FA/Iron [ Plus Iron] 1 each PO DAILY Simethicone 160 mg PO QID 12/30/20 07:37 Ibuprofen [Motrin] 800 mg PO Q8H PRN - Assessment Assessment:: Jenny Wiley is a 35 year old female who delivered via primary section secondary to cord prolapse and hand presentation after previously being vertex position at [facility]. 1. Intrauterine at 39w6d by 30w1d ultrasound 2. S/P section 3. Prolapsed cord with hand presentation, noted approximately 35 minutes after rupture of membranes with vertex presentation confirmed prior/during artificial rupture of membranes. 4. Active labor on admission 5. Limited care with one visit prior to delivery. Negative urine drug screen. 6. GBS unknown - swab collected 7. Thick meconium stained amniotic fluid noted on rupture of membranes 8. Trichomoniasis in , adequately treated - Plan Plan:: 1. Continue to encourage ambulation. 2. Advance diet as tolerated. 3. Continue monitoring pain control and incision site for signs of infection. 4. Continue advancing routine cares. 5. Likely discharge home tomorrow. <Jose Maria Mendoza - Last Filed: 12/30/20 11:20> - Patient Data Vital Signs - Most Recent: Last Vital Signs Temp 97.9 F 12/30/20 08:00 Pulse 92 12/30/20 08:00 Resp 18 12/30/20 08:00 BP 117/61 12/30/20 08:00 Pulse Ox 99 12/30/20 08:00 I&O - Last 24 Hours: Intake & Output 05/17/21 05/18/21 05/18/21 22:59 06:59 14:59 Intake Total 1650 1000 Output Total 40 410 Balance 125@ 590 @ Med Orders - Current: Current Medications Acetaminophen (Acetaminophen 325 Mg Tab) 650 mg PO Q6H PRN PRN Reason: Mild Pain (1-3) or Fever Carboprost Tromethamine (Carboprost Tromethamine 250 Mcg/1 Ml Amp) 250 mcg IM ONETIME PRN PRN Reason: Bleeding Diphenhydramine HCl (Diphenhydramine 50 Mg/Ml Sdv) 25 mg IVPUSH Q6H PRN PRN Reason: Itching Diphenhydramine HCl (Diphenhydramine 25 Mg Tab) 25 mg PO Q6H PRN PRN Reason: Itching Docusate Sodium (Docusate Sodium 100 Mg Cap) 100 mg PO Q12H PRN PRN Reason: Constipation Last Admin: 12/29/20 19:48 Dose: 100 mg Documented by: Ephedrine Sulfate (Ephedrine 50 Mg/Ml Sdv) 5 mg IVPUSH SEECOMMENT PRN PRN Reason: Other Fentanyl Citrate (Fentanyl Citrate/Pf 1,500 Mcg/30 Ml Statistics Manager Vial) 0 mcg IV ASDIRE CTED [facility]; Protocol Last Admin: 12/29/20 07:50 Dose: 50 mcg Documented by: Lactated Ringer's (Ringers, Lactated) 1,000 mls @ 125 mls/hr IV ASDIRECTED [facility] Last Admin: 12/29/20 20:37 Dose: 125 mls/hr Documented by: Oxytocin/Sodium Chloride (Pitocin In Ns 30 Unit/500 Ml) 30 unit in 500 mls @ 2 mls/hr IV TITRATE [facility]; Protocol Last Titration: 12/29/20 10:32 Dose: 0 munits/min, 0 mls/hr Documented by: Lactated Ringer's (Ringers, Lactated) 1,000 mls @ 125 mls/hr IV ASDIRECTED [facility] Last Admin: 12/29/20 16:46 Dose: 125 mls/hr Documented by: Tranexamic Acid 1,000 mg/ (Sodium Chloride) 110 mls @ 660 mls/hr IV ONETIME PRN PRN Reason: Bleeding Ibuprofen (Ibuprofen 800 Mg Tab) 800 mg PO Q8H PRN PRN Reason: Cramping Lidocaine HCl (Lidocaine 1% 30 Ml Sdv) 30 ml INJECT ASDIRECTED PRN PRN Reason: Perineal Repair Methylergonovine Maleate (Methylergonovine 0.2 Mg/1 Ml Amp) 0.2 mg IM ASDIRECTED PRN PRN Reason: Hemorrhage Methylergonovine Maleate (Methylergonovine 0.2 Mg/1 Ml Amp) 0.2 mg IM ONETIME PRN PRN Reason: Excessive Vaginal Bleeding Misoprostol (Misoprostol 400 Mcg (4 X 100 Mcg Tab)) 800 mcg RECTAL ASDIRECTED PRN PRN Reason: Excessive bleeding Naloxone HCl (Naloxone 2 Mg/2 Ml Syringe) 0.1 mg IVPUSH SEECOMMENT PRN PRN Reason: Respiratory Depression Naloxone HCl (Naloxone 2 Mg/2 Ml Syringe) 0.04 mg IVPUSH Q3M PRN PRN Reason: Respiratory Depression Ondansetron HCl (Ondansetron 4 Mg/2 Ml Sdv) 4 mg IVPUSH Q6H PRN PRN Reason: Nausea/Vomiting Oxycodone/Acetaminophen (Acetaminophen/Oxycodone 325-5 Mg Tab) 1 tab PO Q4H PRN PRN Reason: Pain (moderate 4-6) Oxycodone/Acetaminophen (Acetaminophen/Oxycodone 325-5 Mg Tab) 2 tab PO Q4H PRN PRN Reason: Pain (moderate 4-6) Last Admin: 12/30/20 08:51 Dose: 2 tab Documented by: Prenat Multivit/[place]/Iron/Folic Ac ( Multivitamin With Calcium/Folic Acid/Iron Tab) 1 each PO DAILY [facility] Last Admin: 12/30/20 08:51 Dose: 1 each Documented by: Simethicone (Simethicone 80 Mg Tab.Chew) 160 mg PO QID [facility] Last Admin: 12/30/20 08:51 Dose: 160 mg Documented by: Sodium Chloride (Sodium Chloride 0.9% 10 Ml Syringe) 10 ml FLUSH ASDIRECTED PRN PRN Reason: Keep Vein Open Discontinued Medications Acetaminophen (Acetaminophen 325 Mg Tab) 650 mg PO Q4H PRN PRN Reason: Pain (Mild 1-3) and fever Last Admin: 12/29/20 04:23 Dose: 650 mg Documented by: Carboprost Tromethamine (Carboprost Tromethamine 250 Mcg/1 Ml Amp) 250 mcg IM ASDIRECTED PRN PRN Reason: HEMORRHAGE Citric Acid/Sodium Citrate (Citric Acid/Sodium Citrate Solution 30 Ml Cup) 30 ml PO ONETIME ONE Stop: 12/29/20 06:19 Last Admin: 12/29/20 06:30 Dose: 30 ml Documented by: Citric Acid/Sodium Citrate (Citric Acid/Sodium Citrate Solution 30 Ml Cup) Confirm Administered Dose 30 ml .ROUTE .STK-MED ONE Stop: 12/29/20 06:21 Last Admin: 12/29/20 07:34 Dose: Not Given Documented by: Diphenhydramine HCl (Diphenhydramine 50 Mg/Ml Sdv) 25 mg IVPUSH Q6H PRN PRN Reason: Itching or Nausea Fentanyl Citrate (Fentanyl Citrate/Pf 1,500 Mcg/30 Ml Statistics Manager Vial) Confirm Administered Dose 1,500 mcg .ROUTE .ST-MED ONE Stop: 12/29/20 07:37 Lactated Ringer's (Ringers, Lactated) 1,000 mls @ 100 mls/hr IV BOLUS ONE Stop: 12/29/20 13:23 Last Admin: 12/29/20 07:54 Dose: Not Given Documented by: Tranexamic Acid 1,000 mg/ (Sodium Chloride) 110 mls @ 660 mls/hr IV ONETIME PRN PRN Reason: Bleeding Cefazolin Sodium/Dextrose (Ancef 2 Gm/50 Ml) Confirm Administered Dose 50 mls @ as directed .ROUTE .ST-MED ONE Stop: 12/29/20 06:21 Last Admin: 12/29/20 07:34 Dose: Not Given Documented by: Cefazolin Sodium/Dextrose (Ancef 2 Gm/50 Ml) Confirm Administered Dose 50 mls @ as directed .ROUTE .ST-MED ONE Stop: 12/29/20 06:21 Oxytocin/Sodium Chloride (Pitocin In Ns 30 Unit/500 Ml) Confirm Administered Dose 60 unit in 1,000 mls @ as directed .ROUTE .ST-MED ONE Stop: 12/29/20 06:21 Cefazolin Sodium/Dextrose (Ancef 2 Gm/50 Ml) 50 mls @ 100 mls/hr IV ONETIME ONE Stop: 12/29/20 07:14 Last Admin: 12/29/20 06:30 Dose: 100 mls/hr Documented by: Oxytocin/Sodium Chloride (Pitocin In Ns 30 Unit/500 Ml) 30 unit in 500 mls @ as directed IV .STK-MED ONE Stop: 12/29/20 12:55 Ketorolac Tromethamine (Ketorolac 30 Mg/Ml Sdv) 15 mg IVPUSH Q6H SANDY Stop: 12/30/20 02:01 Last Admin: 12/30/20 01:51 Dose: 15 mg Documented by: Ondansetron HCl (Ondansetron 4 Mg/2 Ml Sdv) 4 mg IVPUSH Q4H PRN PRN Reason: Nausea/Vomiting - My Orders Last 24 Hours: My Active Orders 12/29/20 21:29 Communication Order [RC] ROUTINE - Plan Plan:: Seen with resident. Patient was personally seen and examined by the resident and myself, Dr. Kira Lowery. I reviewed the noted scribed on my behalf and necessary changes have been made to reflect my opinion on the history, exam, assessment, and plan
[2020-12-30] MEDS: Ibuprofen 800 MG Tab PO PRN ×2 (13:05→21:23)
[2020-12-30] MEDS: Docusate Sodium 100 MG Cap PO PRN ×2 (13:05→21:24)
[2020-12-31] MEDS: Acetaminophen/oxyCODONE 325-5 MG Tab PO PRN ×5 (02:37→22:48)
[2020-12-31] MEDS: Ibuprofen 800 MG Tab PO PRN ×3 (06:30→22:48)
[2020-12-31] MEDS: Simethicone 80 MG Tab.Chew PO SCH ×4 (08:43→22:47)
[2020-12-31] MEDS: Docusate Sodium 100 MG Cap PO PRN ×2 (08:43→22:48)
[2020-12-31] MEDS: Prenatal Multivitamin with Calcium/Folic Acid/Iron Tab PO SCH (08:43)
--- NOTE | 2020-12-31 09:19 | PN ---
DATE: 12/31/2020 Postop day #2. SUBJECTIVE: The patient has been tolerating p.o., ambulating with some difficulty at times, otherwise passing flatus, urinating well. OBJECTIVE: VITAL SIGNS: Temperature 98.2, heart rate 72, blood pressure 111/68, respiratory rate 16. LUNGS: Clear to auscultation bilaterally. HEART: S1, S2. Regular rate and rhythm. ABDOMEN : Firm uterus, -2 below umbilicus. Aquacel dressings dry and intact. EXTREMITIES: Trace pedal edema. No calf pain. LABORATORY DATA: We will do a postop CBC tomorrow. Hemoglobin preoperatively was 12.9. ASSESSMENT AND PLAN: Postop day #2, status post primary low transverse C- section with 2-layer uterine closure for prolapsed cord with hand/vertex presentation. The patient is working on feeding her baby and following closely. Possible discharge tomorrow discussed. We will do CBC tomorrow. The patient is currently asymptomatic. [facility] /[id number] [facility]ITAL[facility]
[2021-01-01] MEDS: Acetaminophen/oxyCODONE 325-5 MG Tab PO PRN ×2 (04:04→08:59)
[2021-01-01 08:24] VITALS: BP 128/71; PULSE 92
[2021-01-01] MEDS: Docusate Sodium 100 MG Cap PO PRN (08:59)
[2021-01-01] MEDS: Ibuprofen 800 MG Tab PO PRN (08:59)
[2021-01-01] MEDS: Prenatal Multivitamin with Calcium/Folic Acid/Iron Tab PO SCH (08:59)
[2021-01-01] MEDS: Simethicone 80 MG Tab.Chew PO SCH (08:59)
--- NOTE | 2021-01-01 12:42 | DISCH ---
ADMITTING DIAGNOSES: 1. Intrauterine at 39-6/7 weeks by a 30-1/7-week ultrasound. 2. Active labor upon admission. 3. Group B Streptococcus status unknown. 4. Limited care with 1 visit. 5. Trichomoniasis in , treated. 6. G8, P6-0-1-6. DISCHARGE DIAGNOSES: 1. Intrauterine at 39-6/7 weeks' gestation by 30-1/7-week ultrasound, delivered via stat primary low transverse section. 2. Prolapsed cord with hand presentation noted approximately 35 minutes after artificial rupture of membranes with vertex presentation noted prior to and upon rupture. 3. Active labor upon admission. 4. Group B Streptococcus status unknown. 5. Urine drug screen negative. 6. Limited care with 1 visit. 7. Trichomoniasis in , treated. 8. Thick meconium-stained amniotic fluid upon rupture. 9. Nuchal cord x2, loose, reduced bluntly with delivery and prolapsed cord noted with delivery. 10.G8, now P7-0-1-7. PROCEDURE PERFORMED: Primary low-transverse section with 2-layer uterine closure under general anesthesia. BRIEF HISTORY: The patient is a 35-year-old G8, now P7-0-1-7 female with intrauterine at 39-6/7 weeks' gestation by 30-1/7-week ultrasound, who was admitted in active labor. She had limited care with 1 visit. On admission, she was found to be in vertex presentation. Delivery had been progressing without issue and the patient underwent artificial rupture of membranes at which time meconium-stained fluid was present and vertex presentation was verified. Approximately 35 minutes after artificial rupture of membranes, cervical recheck was performed, and it was found that infant was in hand presentation with prolapsed umbilical cord. At that time, nurse evaluating cervix elevated head above cervix and remained in that position. Stat section was called for and accomplished as quickly as feasible. It proceeded without issue and recovered well post delivery with scores of 9 and 9 at one and five minutes respectively. Primary low transverse section was accomplished via general anesthesia. Estimated blood loss 400 mL. Mother recovered well postoperatively. HOSPITAL COURSE: Has been good. Postoperative hemoglobin was 9.9, down from admission hemoglobin of 12.9. The patient has remained afebrile with no lightheadedness, tolerating oral intake, and ambulating without difficulty. Uterus is appropriately tender. Aquacel dressing is dry and intact without drainage. Mother has been bottle-feeding with plans to breastfeed when she returns home. She has been pumping some. Otherwise, pain has been well controlled on current oral regimen. Vaginal bleeding has been decreasing in intensity without any large clots or foul smelling discharge. The patient is deemed to be clinically ready for discharge, and the patient agrees with this. DISCHARGE CONDITION: Good. PHYSICAL EXAMINATION: Vital Signs: Temperature 99.6 degrees Fahrenheit, pulse 92 beats per minute, blood pressure 128/71 mmHg, respiratory rate 16 breaths per minute, O2 saturation by pulse oximetry 97%. Heart: Regular rate and rhythm. S1, S2 without extra heart sounds. Lungs: Clear to auscultation bilaterally with no adventitial breath sounds and symmetric chest expansion. Abdomen: Soft. Moderately tender to palpation. Fundus is firm and below the umbilicus. Aquacel dressing in place, dry, and intact without drainage. Extremities: Mild peripheral edema in the hands and feet. Lower extremities are non-erythematous, non-tender. Felicia's sign negative. ADMISSION DATA: White blood cell count 13.8, hemoglobin 12.9, platelets 265. Toxicology screen negative. COVID negative. Postoperative: white blood cells 12.4, hemoglobin 9.9, platelets 326 (all 3 days postoperatively). DISPOSITION: Home with and family. MEDICATIONS: [id number] Tylenol and ibuprofen as needed for pain in addition to 15 tablets Percocet, 1 to 2 tablets PO Q6H PRN. Continue vitamin. Begin iron 325 mg twice daily for 6 weeks. FOLLOWUP: The patient will be seen for 6-week visit as well as during her baby's visits with first scheduled for 01/05/2021. The patient will be screened for depression and intimate partner violence when she returns back for clinic evaluation, sooner if needed. INSTRUCTIONS: Routine post- section delivery instructions were provided as well as instructions for breast-feeding mother. The patient's questions were answered, and she agrees with the assessment and plan of care. Seen with medical student. Patient was personally seen and examined with the medical student practitioner student, Aiden Da Silva. I reviewed the noted scribed on my behalf and necessary changes have been made to reflect my opinion on the history, exam, assessment, and plan. [facility] /[id number] KESHIA
== END 2021-01-01 13:21 | disposition home or self-care (01) | DRG 788 ==
LOC: DL.OBCHECK 02:25 → DL.OB 03:17 → OBSVTOIN 06:49 → DL.MS 12-31 23:29
PROVIDERS: ADMIT Family Medicine; ATTEND Family Medicine
PROC: 10D00Z1 Extraction of Products of Conception, Low, Open Approach (ICD-10-PCS; principal; 2020-12-29)
DX: O69.0XX0 Labor and delivery complicated by prolapse of cord, not applicable or unspecified (principal); O77.0 Labor and delivery complicated by meconium in amniotic fluid; O69.81X0 Labor and delivery complicated by cord around neck, without compression, not applicable or unspecified; Z3A.39 39 weeks gestation of pregnancy; Z37.0 Single live birth; Z20.822 Contact with and (suspected) exposure to COVID-19; O32.2XX0 Maternal care for transverse and oblique lie, not applicable or unspecified
CPT/HCPCS: 01961; 36415; 80305-QW; 85027; 86850; 86900; 86901; 87077; 87081; 87186; A9270-GY; J0690; J1100; J1885; J2250; J2405; J2590; J2704; J3010; J7120; U0002

== ENCOUNTER 2021-06-04 12:27 | Emergency (ER) | payer SELFPAY ==
[2021-06-04 12:32] VITALS: BP 111/74; PULSE 84
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
[2021-06-04 13:00] LABS: AMPHETAMINES,URINE POSITIVE (NEGATIVE); BARBITURATES,URINE NEGATIVE (NEGATIVE); BENZODIAZEPINE,URINE NEGATIVE (NEGATIVE); MDMA (ECSTASY), URINE NEGATIVE (NEGATIVE); METHADONE,URINE NEGATIVE (NEGATIVE); METHAMPHETAMINES,URINE POSITIVE (NEGATIVE); OPIATES,URINE NEGATIVE (NEGATIVE); OXYCODONE,URINE NEGATIVE (NEGATIVE); PHENCYCLIDINE,URINE NEGATIVE (NEGATIVE); TCA,URINE NEGATIVE (NEGATIVE)
[2021-06-04 13:18] LABS: ANION GAP 11.9 mEq/L (7-13); CHLORIDE,CL 107 mmol/L (98-107); SODIUM,NA 144 mmol/L (136-145)
== END 2021-06-04 17:22 | disposition home or self-care (01) ==
LOC: DL.ED 12:27
DX: H92.01 Otalgia, right ear (principal); F22 Delusional disorders; Z88.1 Allergy status to other antibiotic agents; Z20.822 Contact with and (suspected) exposure to COVID-19
CPT/HCPCS: 36415; 80053; 80305-QW; 80307; 81001; 84703; 85025; 87086; 87088; 87186; 99284; U0002

== ENCOUNTER 2021-12-03 18:04 | Emergency (ER) | payer MEDICAID ==
[2021-12-03] MEDS ORDERED: LORazepam 2 MG/ML SDV IVPUSH ONE (18:26)
[2021-12-03 18:58] LABS: ACETAMINOPHEN 0 ug/mL (10-30 (Therapeutic)); ANION GAP 13.9 mEq/L (7-13); CHLORIDE,CL 104 mmol/L (98-107); SODIUM,NA 141 mmol/L (136-145)
[2021-12-03 19:37] VITALS: BP 108/84; PULSE 97
== END 2021-12-03 19:38 | disposition home or self-care (01) ==
LOC: DL.ED 18:04
DX: F41.9 Anxiety disorder, unspecified (principal); F17.210 Nicotine dependence, cigarettes, uncomplicated; Z88.1 Allergy status to other antibiotic agents
CPT/HCPCS: 36415; 80053; 80143; 80179; 80307; 85025; 96374; 99283; J2060

== ENCOUNTER 2023-03-24 18:10 | Emergency (ER) | payer MEDICAID ==
[2023-03-24] MEDS ORDERED: Ketorolac 30 MG/ML SDV IM ONE (18:12)
[2023-03-24] MEDS ORDERED: Diphtheria,Pertussis(Acell),Tetanus Vaccine 0.5 ML Syringe IM ONE (18:12)
[2023-03-24] MEDS ORDERED: Acetaminophen/HYDROcodone 325-10 MG Tab PO ONE (18:12)
[2023-03-24] MEDS ORDERED: Silver Sulfadiazine 1% Crm 50 GM Tube TOP ONE (18:13)
[2023-03-24] MEDS ORDERED: Lidocaine 5% Oint 35.44 GM Tube TOP ONE (18:13)
[2023-03-24] MEDS ORDERED: Bacitracin Oint 1 GM U/D Packet TOP ONE (18:13)
[2023-03-24] MEDS ORDERED: Take Home: Acetaminophen/HYDROcodone 325-5 MG, 5 Tab Pack PO ONE (18:53)
[2023-03-24 19:33] VITALS: BP 124/67; PULSE 99
== END 2023-03-24 19:15 | disposition home or self-care (01) ==
LOC: DL.ED 18:10
DX: T20.20XA Burn of second degree of head, face, and neck, unspecified site, initial encounter (principal); T20.212A Burn of second degree of left ear [any part, except ear drum], initial encounter; T20.27XA Burn of second degree of neck, initial encounter; T21.24XA Burn of second degree of lower back, initial encounter; T21.23XA Burn of second degree of upper back, initial encounter; Z23 Encounter for immunization; Z88.1 Allergy status to other antibiotic agents; X12.XXXA Contact with other hot fluids, initial encounter
CPT/HCPCS: 90471; 90715; 96372; 99284; A9270; J1885

== ENCOUNTER 2024-07-10 08:01 | Emergency (ER) | payer SELFPAY ==
[2024-07-10 08:38] LABS: BASOPHILS PERCENT AUTO 0.3 % (0.0-1.0); EOSINOPHILS PERCENT AUTO 1.1 % (1.0-3.0); HEMOGLOBIN 13.4 g/dL (12.0-16.0); LYMPHOCYTES PERCENT AUTO 26.1 % (20.5-50.1); MEAN CORPUSCULAR HEMOGLOBIN 30.1 pg (27.0-34.0); MEAN CORPUSCULAR HGB CONC 32.7 g/dL (33.0-35.0); MEAN CORPUSCULAR VOLUME 92.1 fL (80-100); NEUTROPHILS PERCENT AUTO 67.5 % (42.2-75.2); PLATELET COUNT,PLT 314 10^3/uL (150-450); RED BLOOD CELL COUNT 4.45 10^6/uL (4.2-5.4); WHITE BLOOD CELL COUNT,WBC 11.6 10^3/uL (5.0-10.0)
[2024-07-10 09:05] LABS: ALANINE AMINOTRANSFERASE,ALT 20 U/L (14-59); ALBUMIN 3.7 g/dL (3.4-5.0); ALKALINE PHOSPHATASE 97 U/L (46-116); ASPARTATE AMNIOTRANSFERASE,AST 14 U/L (15-37); BILIRUBIN TOTAL 0.4 mg/dL (0.2-1.0); BLOOD UREA NITROGEN,BUN 8 mg/dL (7-18); BUN/CREATININE RATIO 8.4 (No establ ref range); CALCIUM 8.5 mg/dL (8.5-10.1); CARBON DIOXIDE,CO2 27 mmol/L (21-32); CHLORIDE,CL 103 mmol/L (98-107); CREATININE 0.95 mg/dL (0.55-1.02); EST CRCL DRUG DOSING (CG) 70.01 mL/min; GLUCOSE RANDOM 109 mg/dL (70-99); PROTEIN TOTAL,TP 7.5 g/dL (6.4-8.2); SODIUM,NA 139 mmol/L (136-145); TSH ULTRASENSITIVE 1.66 uIU/mL (0.36-3.74)
[2024-07-10 09:28] VITALS: BP 143/101; PULSE 101
[2024-07-10 09:29] LABS: ESTIMATED GFR 79 mL/min (>=60); ETHANOL BLOOD MEDICAL < 3 mg/dL (0)
== END 2024-07-10 10:23 | disposition other institution (70) ==
LOC: DL.ED 08:01
DX: F20.0 Paranoid schizophrenia (principal); F17.210 Nicotine dependence, cigarettes, uncomplicated; Z88.1 Allergy status to other antibiotic agents; Z79.899 Other long term (current) drug therapy
CPT/HCPCS: 36415; 80053; 80307; 84443; 85025; 99285